=== PATIENT | male | born 1980 | race Caucasian/White ===

== ENCOUNTER 2022-06-27 08:21 | Emergency (ER) | payer MEDICAID, OTHER ==
[~2022-06-27] VITALS: Ht 167.6 cm; Wt 65.0 kg
[2022-06-27 08:33] VITALS: BP 118/50
[2022-06-27] MEDS ORDERED: TETRACAINE 0.5% OPHTH DROPS 4ML BOTHEYE ONE (09:30)
[2022-06-27] MEDS ORDERED: POLY10DR LEFTEYE (10:44)
== END 2022-06-27 11:02 | disposition home or self-care (01) ==
LOC: ER 08:21
DX: H01.005 Unspecified blepharitis left lower eyelid (principal)
CPT/HCPCS: 99283

== ENCOUNTER 2022-12-09 02:58 | Emergency (ER) | payer MEDICAID, OTHER ==
[~2022-12-09] VITALS: Ht 167.6 cm; Wt 75.0 kg
[~2022-12-09 02:58] MED LIST: POLY10DR LEFTEYE
[2022-12-09] MEDS ORDERED: LIDOCAINE HCL/PF 1% 10 MG/ML 5ML VIAL INFIL ONE (06:15)
[2022-12-09] MEDS ORDERED: TETANUS, DIPHTHERIA, PERTUSSIS VAC/PF 0.5ML (>10YR OLD) IM ONE (06:15)
[2022-12-09] MEDS ORDERED: AMOXICILLIN/POTASSIUM CLAVULANATE 875/125MG TAB PO NR (06:15)
[2022-12-09] MEDS ORDERED: BACITRACIN ZINC OINT UDPKT TOP ONE (06:15)
[2022-12-09 07:30] VITALS: BP 128/84
[2022-12-09] MEDS ORDERED: IBUP-2029 MT (09:06)
[2022-12-09] MEDS ORDERED: HYDR-4001 MT (09:06)
[2022-12-09] MEDS ORDERED: AMOX1TAB16 MT (09:06)
== END 2022-12-09 09:58 | disposition home or self-care (01) ==
LOC: ER 02:58
DX: S02.2XXB Fracture of nasal bones, initial encounter for open fracture (principal); S62.601A Fracture of unspecified phalanx of left index finger, initial encounter for closed fracture; Y00.XXXA Assault by blunt object, initial encounter; F10.129 Alcohol abuse with intoxication, unspecified; Y90.9 Presence of alcohol in blood, level not specified; Y93.89 Activity, other specified; Y92.89 Other specified places as the place of occurrence of the external cause
CPT/HCPCS: 12011; 29125; 70450; 70486; 71045; 72125; 73130; 90471; 90715; 99285; J3490

== ENCOUNTER 2025-05-27 20:56 | Emergency (ER) | payer OTHER ==
[~2025-05-27] VITALS: Ht 177.8 cm; Wt 80.0 kg
[~2025-05-27 20:56] MED LIST changes: +AMOX1TAB16 MT; +HYDR-4001 MT; +IBUP-2029 MT
[2025-05-27 20:58] VITALS: BP 126/84; PULSE 78; RESP 20; TEMP 37.1; O2SAT 100
[2025-05-27] MEDS: TETANUS, DIPHTHERIA, PERTUSSIS VAC/PF 0.5ML (>10YR OLD) IM ONE (22:15)
[2025-05-27] MEDS: LIDOCAINE HCL 1% 20ML VIAL INFIL ONE (22:45)
[2025-05-27] MEDS: AMPICILLIN SOD/SULBACTAM NA 1.5 G in SODIUM CHLORIDE 0.9% 50 ML IV SCH (23:23)
[2025-05-28] MEDS ORDERED: AMOX1TAB16 MT (04:19)
== END 2025-05-28 05:14 | disposition home or self-care (01) ==
LOC: ER 20:56
DX: S61.011A Laceration without foreign body of right thumb without damage to nail, initial encounter (principal); Z79.899 Other long term (current) drug therapy; W34.00XA Accidental discharge from unspecified firearms or gun, initial encounter; Y93.89 Activity, other specified; Y92.89 Other specified places as the place of occurrence of the external cause; Y99.8 Other external cause status
CPT/HCPCS: 73130; 90715; 12002; 90471; 96365; 96366; 99284; J0295; Z7610; A6449

== ENCOUNTER 2025-09-19 14:53 | Emergency (ER) | payer MEDICAID ==
[~2025-09-19] VITALS: Ht 175.3 cm; Wt 78.0 kg
[~2025-09-19 14:53] MED LIST changes: +IBUP-1455 MT; -IBUP-2029 MT
[2025-09-19 15:02] VITALS: O2SAT 98
[2025-09-19] MEDS ORDERED: LIDOCAINE 5% PATCH TOP SCH (15:45)
[2025-09-19] MEDS: ACETAMINOPHEN 325MG TABLET PO ONE (17:51)
[2025-09-19] MEDS: LIDOCAINE 5% PATCH TOP SCH (17:51)
[2025-09-19] MEDS: KETOROLAC 30MG/ML VIAL IM ONE (17:51)
[2025-09-19] MEDS ORDERED: NAPR-677 MT (18:00)
[2025-09-19] MEDS ORDERED: LIDO-53 TP (18:00)
[2025-09-19] MEDS ORDERED: ACET-2708 MT (18:00)
[2025-09-19 18:06] VITALS: BP 115/62; PULSE 80; RESP 16; TEMP 36.7; O2SAT 98
== END 2025-09-19 18:09 | disposition home or self-care (01) ==
LOC: ER 14:53
DX: S30.0XXA Contusion of lower back and pelvis, initial encounter (principal); Z79.1 Long term (current) use of non-steroidal anti-inflammatories (NSAID); Z79.899 Other long term (current) drug therapy; W10.9XXA Fall (on) (from) unspecified stairs and steps, initial encounter; Y93.89 Activity, other specified; Y92.89 Other specified places as the place of occurrence of the external cause; Y99.8 Other external cause status
CPT/HCPCS: 99284; 72100; 72220; 96372; J1885